=== PATIENT | female | born 2000 | race Caucasian/White ===

== ENCOUNTER → 2023-10-20 | Emergency (ER) | payer OTHER ==
[~2023-10-20] MED LIST: dexAMETHasone 10 MG/ML VIAL ONE
--- NOTE | 2023-10-20 15:09 | EDPHYS ---
Physician Documentation [facility] Name: Natacha Fortune Age: 23 yrs Sex: Female : 2000 Arrival Date: 10/20/2023 Time: 13:55 Bed 12 Private MD: ED Physician Catracho Lopez HPI: 10/20 14:53 This 23 yrs old Female presents to ER via Ambulatory with complaints of Allergic kb Reaction. 14:53 Patient is a 23-year-old female who presents for swelling to the lips that began on kb Wednesday. States she woke up on Wednesday morning with swelling to the upper lip, then ate some peanuts later in the morning and the swelling went down to her lower lip. States the swelling is now to both of the lips. Patient denies shortness of breath, rash, itching. States she does have a sore throat and headache today. Reports she did have fillers put in 3 months ago so she talked to her senior clinical study manager and was told that she has had patients in the past to have reactions to peanuts after having the fillers placed. Recommended antihistamines. Patient states she came in to see if she could get a shot of something to make it go away faster.. Historical: - Allergies: 14:17 No Known Allergies; bp - Home Meds: 14:17 None [Active]; bp - PMHx: 14:17 None; bp - Immunization history:: Adult Immunizations up to date. - Social history:: Smoking status: Patient denies any tobacco usage or history of. ROS: 14:34 Constitutional: Negative for fever, chills, and weight loss, kb 14:34 ENT: Positive for sore throat, lip swelling, 14:50 Neuro: Positive for headache, kb 14:50 All other systems are negative, Exam: 14:50 Constitutional: This is a well developed, well nourished patient who is awake, alert, kb and in no acute distress. Head/Face: Normocephalic, atraumatic. Cardiovascular: Regular rate Respiratory: Respirations even and unlabored. No increased work of breathing. Talking in full sentences Abdomen/GI: Soft, non-tender. No distention Skin: Warm, dry with normal turgor. Normal color. MS/ Extremity: Pulses equal, no cyanosis. Neurovascular intact. Full, normal range of motion. Neuro: Awake and alert, GCS 15, oriented to person, place, time, and situation. Moves all extremities. Normal gait. 14:50 ENT: Mouth: Lips: swelling, Posterior pharynx: Airway: normal, erythema, that is mild, Vital Signs: 14:15 BP 122 / 83; Pulse 108; Resp 18; Temp 98.7; Pulse Ox 100% ; Weight 61.23 kg; Height 5 bp ft. 3 in. ; 14:15 Body Mass Index 23.91 (61.23 kg, 160.02 cm) bp MDM: 14:02 Patient medically screened. kb 14:52 Differential diagnosis: anaphylaxis, angioedema, strep, flu. Data reviewed: vital kb signs, nurses notes. Counseling: I had a detailed discussion with the patient and/or guardian regarding the historical points, exam findings, and any diagnostic results supporting the discharge/admit diagnosis, lab results, the need for outpatient follow up, a family practitioner, to return to the emergency department if symptoms worsen or persist or if there are any questions or concerns that arise at home. 10/20 14:11 Order name: Flu; Complete Time: 15:08 kb 10/20 14:11 Order name: Strep kb 10/20 15:00 Order name: Throat Culture EDMS Administered Medications: 14:31 Drug: Dexamethasone IM 10 mg IM once Route: IM; Site: right deltoid; ld1 Disposition: 14:42 I was immediately available on-site in the Emergency Department for consultation in the ms3 care of the patient. Disposition Summary: 10/20/23 15:09 Discharge Ordered Notes: Location: Home kb Condition: Stable kb Diagnosis - Localized swelling, mass and lump, unspecified - lip swelling kb Followup: kb - With: Emergency Department - When: As needed - Reason: Worsening of condition Followup: kb - With: Private Physician - When: 2 - 3 days - Reason: Recheck today's complaints, Continuance of care, Re-evaluation by your physician Discharge Instructions: - Discharge Summary Sheet kb - Allergies, Adult, Cbna-jt-Upod kb Forms: - Medication Reconciliation Form kb - Thank You Letter kb - Antibiotic Education kb - Prescription Opioid Use kb - Patient Portal Instructions kb - Leadership Thank You Letter kb Signatures: Dispatcher [employer] EDMS Juliette Grove, Samuel Hernadez, RN RN bp Catracho Lopez DO DO ms3 Nichole Lopez RN RN ld1 Corrections: (The following items were deleted from the chart) 14:50 14:34 ENT: Positive for lip swelling, kb kb
--- NOTE | 2023-10-20 15:09 | ER ---
Nurse's Notes [facility] Name: Natacha Fortune Age: 23 yrs Sex: Female : 2000 Arrival Date: 10/20/2023 Time: 13:55 Bed 12 Private MD: Diagnosis: Localized swelling, mass and lump, unspecified-lip swelling Presentation: 10/20 14:15 Chief complaint: Patient states: LIP SWELLING AFTER EATING NUTS ON WEDNESDAY. Coronavirus bp screen: At this time, the client does not indicate any symptoms associated with coronavirus-19. Ebola Screen: No symptoms or risks identified at this time. Onset: The symptoms/episode began/occurred 3 day(s) ago. Anaphylaxis evaluation, no signs or symptoms of anaphylaxis were noted. Initial Sepsis Screen: Does the patient meet any 2 criteria? No. Patient's initial sepsis screen is negative. Does the patient have a suspected source of infection? No. Patient's initial sepsis screen is negative. Risk Assessment: Do you want to hurt yourself or someone else? Patient reports no desire to harm self or others. Onset of symptoms is unknown. 14:15 Method Of Arrival: Ambulatory bp 14:15 Acuity: RENITA 4 bp Triage Assessment: 14:17 General: Appears in no apparent distress. Behavior is cooperative, appropriate for age, bp anxious. Pain: Denies pain. Respiratory: Airway is patent. Historical: - Allergies: 14:17 No Known Allergies; bp - Home Meds: 14:17 None [Active]; bp - PMHx: 14:17 None; bp - Immunization history:: Adult Immunizations up to date. - Social history:: Smoking status: Patient denies any tobacco usage or history of. Screenin:38 [facility] ED Fall Risk Assessment (Adult) History of falling in the last 3 months, ld1 including since admission No falls in past 3 months (0 pts). Abuse screen: Denies threats or abuse. Denies injuries from another. Nutritional screening: No deficits noted. Tuberculosis screening: No symptoms or risk factors identified. Assessment: 14:38 Reassessment: See triage assessment. General: Appears in no apparent distress. ld1 comfortable, Behavior is calm, cooperative, appropriate for age. Neuro: Level of Consciousness is awake, alert, obeys commands, Oriented to person, place, time, situation. Respiratory: Airway is patent Respiratory effort is even, unlabored, Breath sounds are clear bilaterally. Derm: swelling to lips. Vital Signs: 14:15 BP 122 / 83; Pulse 108; Resp 18; Temp 98.7; Pulse Ox 100% ; Weight 61.23 kg; Height 5 bp ft. 3 in. ; 14:15 Body Mass Index 23.91 (61.23 kg, 160.02 cm) bp ED Course: 13:59 Patient arrived in ED. ra3 14:02 Juliet[facility] Grove [facility]C [facility] kb 14:02 Catracho Lopez DO is Attending Physician. kb 14:16 Triage completed. bp 14:17 Arm band placed on. bp 14:31 Nichole Lopez, RN is Primary Nurse. ld1 14:31 Strep Sent. ld1 14:31 Flu Sent. ld1 14:38 Patient has correct armband on for positive identification. Placed in gown. Bed in low ld1 position. Call light in reach. Side rails up X2. Pulse ox on. NIBP on. Door closed. Noise minimized. Warm blanket given. 15:12 No provider procedures requiring assistance completed. Patient did not have IV access ld1 during this emergency room visit. Administered Medications: 14:31 Drug: Dexamethasone IM 10 mg IM once Route: IM; Site: right deltoid; ld1 Medication: 14:38 VIS not applicable for this client. ld1 Outcome: 15:09 Discharge ordered by . kb 15:12 Discharged to home ambulatory, ld1 15:12 Condition: stable 15:12 Discharge instructions given to patient, Instructed on discharge instructions, follow up and referral plans. Demonstrated understanding of instructions, follow-up care, 15:12 Patient left the ED. ld1 Signatures: Juliette Grove FNP-C FNP-Ckb Peltier, Brian RN RN bp Nichole Lopez, PRISCILLA RN ld1 Maggie Gonzales ra3
[2023-10-20 16:09] VITALS: BP 122/83; TEMP 98.7; O2SAT 100
== END ==
LOC: ER 13:55
DX: R22.9 Localized swelling, mass and lump, unspecified (principal); R51.9 Headache, unspecified
CPT/HCPCS: 87070; 87081; 87804 ×2; J1100; 96372; 99284

== ENCOUNTER → 2023-12-24 | Emergency (ER) | payer OTHER, SELFPAY ==
[~2023-12-24] MED LIST changes: +METHYLPREDNISOLONE 125 MG INJ ONE; -dexAMETHasone 10 MG/ML VIAL ONE
--- OUTSIDE RECORDS SUMMARY | 2023-12-24 14:33 | XMS REPORT | Continuity of Care Document ---
Author Name Unknown Address [address] [place] [address] [facility] thconnect Address [address] [place] [address] Care Team Providers Care Medical Malpractice Paralegal Name Role Phone Saulo Kramer Attending Clinician Roberto Bales Admitting Clinician Unavailable Payers Payer Name Policy Type Policy Number Effective Date Expirati on Date Source Allergies, Adverse Reactions, Alerts Allergy Name Allergy Type Status Severity Reaction(s) Onset Date Inactive Date Treating Clinician Comments Source No Known Allergie s DA Active U 07-17 00:00: 00 [facility] No Known Allergie s DA Active U 07-17 00:00: 00 [facility] No Known Intolera nces DA Active U 2012-11 00:00: 00 [facility] No Known Intolera nces DA Active U 2012-11 00:00: 00 [facility] Encounters Start Date/Time End Date/Time Encounter Type Admission Type Attending Clinicians Care Facility Care Department Encounter ID Source 2022-10-30 10:41:58 2022-10-30 10:41:58 Outpatient [facility] [id number] 2021-07-17 14:40:00 2021-07-17 16:15:00 Inpatient EM Saulo Kramer [facility] [id number] [facility] Results Test Description Test Time Test Comments Results Result Co mments Source URINE HCG TRIAGE (ER ONLY)2021-07-18 10:02:00* Test Item Value Reference Range Interpretation Comme nts URINE HCG TRIAGE (ER ONLY) ( test code = HCGTRIAGE) NEGATIVE Negative Urine Test Result: NEGATIVEAre internal controls (presence of a control line & clear background) OK? YesLot # of HCG Test Kit: [id number] Date of Kit: 12/01/22Test Performed by: REBECCATest Perfomed on: 07/17/21CB W/AUTO [id number] 00:00:00* Test Item Value Reference Range Interpretation Comme nts WHITE BLOOD CELL (test code = WBC) 11.0 K/uL 3.5-11.0 N RED BLOOD CELL (test code = RBC) 4.52 M/uL 3.54-5.02 N HEMOGLOBIN (test code = HGB) 13.4 GM/DL 11.0-15.0 N HEMATOCRIT (test code = HCT) 38.0 % 37.0-47.0 N MEAN CELL VOLUME (test code = MCV) 84.1 fL 81.0-99.0 N MEAN CELL HGB (test code = MCH) 29.6 pg 27.0-31.0 N MEAN CELL HGB CONCETRATION ( test code = MCHC) 35.3 GM/DL 33.0-37.0 N RED CELL DISTRIBUTION WIDTH CV (test code = RDW) 13.4 % 11.5-14.5 N PLATELET COUNT (test code = PLT) 222 K/mm3 150-400 N MEAN PLATELET VOLUME (test c ode = MPV) 11.5 FL 8.8-13.1 N NEUTROPHIL % (test code = NT%) 39.6 % 34.0-64.0 N LYMPHOCYTE % (test code = LY%) 53.1 % 25.0-45.0 H MIXED % (test code = MX%) 7.3 % 3.0-15.0 N NEUTROPHIL # (test code = NT#) 4.4 K/uL 1.8-7.6 N LYMPHOCYTE # (test code = LY#) 5.8 K/uL 1.0-3.8 H MIXED # (test code = MX#) 0.8 k/mm3 0.1-0.8 N MONO [id number] 19:16:00* Test Item Value Reference Range Interpretation Comme nts MONO SCREEN (test code = MONO) POSITIVE NEGATIVE [place] [address]/17/21Nurse read back resut and tech confirmed it's correct? Y BASIC METABOLIC [id number] 15:13:00* Test Item Value Reference Range Interpretation Comme nts SODIUM (test code = NA/ABG) 139 MEQ/L 134-147 N POTASSIUM (test code = K/ABG) 4.3 MEQ/L 3.4-5.0 N CHLORIDE (test code = CL/ABG) 104 MEQ/L 100-108 N CREATININE ABG (test code = CREAABG) 0.8 mg/dL 0.6-1.0 N POC IONIZED CALCIUM (test co de = POCCA) 1.22 MMOL/L 1.12-1.32 N POC GLUCOSE (test code = POCGLU) 107 MG/DL - CT NECK [id number] 00:00:00 [facility] : 2000 Sex: F Name: LICHA GALLAGHER FSED : 2000 Age/S: 21 / F [address] [facility] Unit #: [id number] Loc:Geovani Andrews [address] Phys: Saulo Kramer MD Acct: [id number] Dis Date: Status: REG ER PHONE#: Exam Date: 07/17/2021 5640 FAX #: Reason: LEFT LATERAL NECK SWELLING EXAMS: CPT CODE: [id number] CT NECK W/CONTRAST 66823 PROCEDURE INFORMATION: Exam: CT Neck With Contrast Exam date and time: 07/17/2021 3:25 PM Age: 21 years old Clinical indication: Neck pain; Additional info: Left lateral neckswelling TECHNIQUE: Imaging protocol: Computed tomography images of the neck with contrast. Radiation optimization: All CT scans at this facility use at least one of these dose optimization techniques: automated exposure control; mA and/or kV adjustment per patient size (includes targeted exams where dose is matched to clinical indication); or iterative reconstruction. Contrast material: ISO 300;Contrast volume: 100 ml; Contrast route: INTRAVENOUS (IV); Other technique: CT RADIATION DOSE DLP: 280.26 MGY-CM COMPARISON: No relevant prior studies available. FINDINGS: Brain: No abnormal intracranial enhancement along the visualized segments. Nasopharynx: Mildly prominent tonsillar pillars andnasopharyngeal adenoidal tissue with no airway compromise. Oropharynx: No significant tonsillar enlargement. Hypopharynx: Unremarkable. Larynx: Normal epiglottis. Retropharyngeal space: Unremarkable. Submandibular/Parotid glands: Glands are normal in size. No focal lesions. Thyroid: Unremarkable thyroid gland. Lymph nodes: Bilateral submental, submandibular, anterior posterior triangle lymphadenopathy is noted with the dominant right and left submandibular lymph nodes measuring 15 and 17 mm in m aximum transverse dimension, respectively. Subcentimeter bilateral supraclavicular lymph nodes are seen, not enlarged by size criteria and without suspicious features.Low volume residual thymic tissue is seen in the anterior mediastinum, considered within normal limits. Few bilateral subcentimeter s uboccipital/nuchal lymph nodes are noted measuring up to 6 mm in short axis. Trachea: Visualized trachea is unremarkable. Lungs: Clear lung apices. Bones/joints: No acute fracture. Soft tissues: Widely patent airway without focal abnormality. No prevertebral soft tissue edema or fluid collection. PAGE 1 Signed Report (CONTINUED) Name: LICHA GALLAGHER FSED : 2000 Age/S: 21 / F [address] [facility] Unit #: [id number] Loc: Geovani [facility] [address] Phys: Saulo Kramer MD Acct: [id number] Dis Date: Status: REG ER PHONE #: Exam Date: 07/17/2021 1532 FAX #: Reason: LEFT LATERAL NECKSWELLING EXAMS: CPT CODE: [id number] CT NECK W/CONTRAST 10168 (Continued) Other findings: Visualized skeleton is unremarkable. IMPRESSION: 1. Bilateral submental, submandibular, anterior and posterior cervical lymphadenopathy as described. Acute lymphadenitis is the main consideration given patient's age and reported pain. Recommend follow-up with ultrasound or CT in 6-8 weeks to assess for resolution and to exclude underlying lymphoproliferative disorder. Does this patient have history of mononucleosis? 2. Mild nasopharyngeal and bilateral tonsillar pillar adenoidal hypertrophy with no airway compromise. 3. No organized fluid collection. at 1555 Reported and signed by: Rishi Chan M.D. CC: Saulo Kramer MD Technologist:RT Crow(R)(CT) CTDI: DLP: Trnscb Date/Time: 07/17/2021 (1555)t.[email or web address] Orig Print D/T: S: 07/17/2021 (5093) PAGE 2 Signed Report Notes Date/Time Note Provider Source 2021-07-17 14:55:00 [id number]:55:00 [facility] ([facility])EMERGENCY PROVIDER REPORTREPORT#:[id number] REPORT STATUS: SignedDATE:07/17/21 TIME: 1755 PATIENT: LICHA GALLAGHER UNIT #: [id number]#: [id number] ROOM/BED:AGE: 21 SEX: F PCP PHYS: Roberto Shah MDSERVICE AUTHOR: Saulo Kramer MD * ALL edits or amendments must be made on the electronic/computer document * See AddendumHPI-Neck Pain GeneralInitial Greet Date/Time 07/17/21 1440 PresentationChief Complaint Left neck swelling and pain Free Text HPI NotesFree Text HPI [id number] healthy, vaccinated female presents with left neck swelling and pain. Patient reports 1 week of left neck discomfort, and noticing yesterday that she had some swelling to her left neck. Denies fever, recent illness, sorethroat, cough, trauma, skin changes. Mother denies family history of hematologic malignancy.Patient denies substance use. Review of Systems Focused Review of SystemsConstitutionalDenies: Chills, Fatigue, Fever, Malaise, Recent wt loss. EyesDenies: Blurred bilat. Ears/Nose/ThroatDenies: Earache bilat, Sore throat. RespiratoryDenies: Cough, non-productive, Shortness of breath. CardiovascularDenies: Chest pain. GIDenies: Abdominal pain, Vomiting. MusculoskeletalReports: Neck pain. SkinReports: Swelling. NeurologicDenies: Focal weakness, Generalized weakness. Past Medical History - AdultStated Complaint L SIDED NECK SWELLINGAllergiesCoded Allergies:No Known Allergies (07/17/21) Home MedicationsReported MedicationsNo Known Home Medications Discontinued Reported MedicationsAMOXICILLIN/CLAV K (AUGMENTIN 600 MG/5 ML) Pt reports no significant: Past medical history, Past surgical history Physical Exam Vital SignsVital SignsFirst Documented: Result Date Time Pulse Ox 97 07/17 1453 B/P 120/75 07/17 1453 B/P Mean 90 07/17 1453 Temp 36.2 07/17 1453 Pulse 105 07/17 1453 Resp 16 07/17 1453 Last Documented: Result Date Time Pulse Ox 98 07/17 1614 B/P 122/89 07/17 1614 B/P Mean 100 07/17 1614 Temp 36.7 07/17 1614 Pulse 98 07/17 1614 Resp 16 07/17 1614 Review of Vital Signs Reviewed Focused PEGeneral/Const General/Const Awake, Alert, No acute distress, Well appearing, Well developed, Well hydrated, Not toxic appearingMS Head Head AtraumaticEyes Eyes PERRL, EOMIEars/Nose/Throat Ears/Nose/Throat Atraumatic, Airway patent, Mucous membranes moist, Pharynx NL, No trismusMS Neck Neck Full range of motion Text/Dict NotesSwelling to left neck w/o overlying skin changes Soft Tissue Neck Lymphadenitis L. Resp/Chest Respiratory/Chest Breath sounds NL, Breath sounds = bilat, No respiratory distressCardiovascular Cardiovascular Heart rate NL, Regular rhythm, Heart sounds NLSkin Skin Color NLNeurologic Neurologic Oriented X3, Speech NL, No motor deficits, Cerebellar NL, Memory NL, Gait NL ImagesNeck Zones of Neck[Embedded Image Not Available] 1) Swelling and tenderness. No obviously palpable lymph nodes. Interpretation Diagnostics Lab Results InterpretationResultsLaboratory Tests: 07/17 1508 Blood Gas Sodium (134 - 147 MEQ/L) 139 Potassium (3.4 - 5.0 MEQ/L) 4.3 Chloride (100 - 108 MEQ/L) 104 Ionized Calcium (1.12 - 1.32 MMOL/L) 1.22 Chemistry POC Creatinine (0.6 - 1.0 mg/dL) 0.8 POC Glucose (mg/dL) (MG/DL) 107 Recent Impressions:CAT SCAN - CT NECK W/CONTRAST 07/17 1525 Report Impression - Status: SIGNED Entered: 07/17/2021 0026 IMPRESSION: 1. Bilateral submental, submandibular, anterior and posterior cervical lymphadenopathy as described. Acute lymphadenitis is the main consideration given patient's age and reported pain. Recommend follow-up with ultrasound or CT in 6-8 weeks to assess for resolution and to exclude underlying lymphoproliferative disorder. Does this patient have history of mononucleosis? 2. Mild nasopharyngeal and bilateral tonsillar pillar adenoidal hypertrophy with no airway compromise. 3. No organized fluid collection.Impression By: TingERR2 - Rishi Chan M.D. Re-Evaluation MDM Free Text MDM NotesFree Text MDM Nzjol96-zono-lav healthy, vaccinated female presents with left neck swelling and pain. Patient well apearing. DDx: lymphadenitis, hematologic malignancy, mono.Low suspicion for mumps in setting of vaccinated patient. Re-Evaluation/ProgressRe-Evaluation/Progress Text/Dict NoteCT w/ enlarged lymph nodes c/w lymphadneitis. Will test for mono. Blood work WNL.Discharge with return precautions and instructions to have repeat neck imaging in 6-8 weeks. Patient Discharge Departure Vital Signs/ConditionVital SignsFirst Documented: Result Date Time Pulse Ox 97 07/17 1453 B/P 120/75 07/17 1453 B/P Mean 90 07/17 1453 Temp 36.2 07/17 1453 Pulse 105 07/17 1453 Resp 16 07/17 1453 Last Documented: Result Date Time Pulse Ox 98 07/17 1614 B/P 122/89 07/17 1614 B/P Mean 100 07/17 1614 Temp 36.7 07/17 1614 Pulse 98 07/17 1614 Resp 16 07/17 1614 All vital signs available at the time of this entry have been reviewed. Clinical ImpressionClinical ImpressionPrimary Impression: Lymphadenopathy of head and neck Disposition DecisionDischarge )( Discharged to Home Yes )( Time 1603 )( Date 07/17/21 Discharge/Care PlanCounseled Regarding Diagnosis, Lab results, Imaging studies, Need for follow-up,When to return to ED(Auto) PrescriptionsCurrent Visit ScriptsNo Known Home Medications Patient Instructions ED MononucleosisAdditional InstructionsYou will be called will your mono test result. While waiting for result, avoid sharing drinks and avoid contact sports.Referrals PRIMARY CARE: Call for appointmentYou need to arrange for follow-up ultrasound or CT in 6-8 weeks to assess for resolution of swollen lymph nodes and to exclude underlying lymphoproliferative disorder. Discharge NoteI have spoken with the patient and/or caregivers. I have explained the patient'scondition, diagnoses and treatment plan based on the information available to meat this time. I have answered the patient's and/or caregiver's questions and addressed any concerns. The patient and/or caregivers have as good an understanding of the patient's diagnosis, condition and treatment plan as can beexpected at this point. The vital signs have been stable. The patient's condition is stable and appropriate for discharge from the emergency department. The patient will pursue further outpatient evaluation with the primary care physician or other designated or consulting physician as outlined in the discharge instructions. The patient and/or caregivers are agreeable to this planof care and follow-up instructions have been explained in detail. The patient and/or caregivers have received these instructions in written format and have expressed an understanding of the discharge instructions. The patient and/or caregivers are aware that any significant change in condition or worsening of symptoms should prompt an immediate return to this or the closest emergency department or a call to 911. at 1638 Addendum 1: 07/21/21 0723 by Saulo Kramer MD Patient AddendumAddendumMono resulted as positive. Called patient and left voicemail, provided results and mono precautions. [place]. [place] [address]RPT #:[id number] OF REPORTEDEmerashley county medical center department [id number]:55:00G.[id number] ilable for patient [id number]:38:59 HCACL
[2023-12-24 15:34] LABS: Specific Gravity 1.027 (1.005-1.030)
[2023-12-24 15:48] LABS: Specific Gravity 1.027 (1.005-1.030); Urine Bacteria None Seen /HPF (<20); Urine Bilirubin NEGATIVE (Negative); Urine Blood Negative (Negative); Urine Clarity Extremely Turbid (Clear); Urine Color Yellow (Yellow); Urine Glucose NEGATIVE (Negative); Urine Mucus 3+ /HPF (None Seen); Urine Protein TRACE (Negative); Urine RBC <5 /HPF (None Seen); Urine Urobilinogen 1+ (Normal); Urine WBC Clump Rare /HPF (None Seen)
--- NOTE | 2023-12-24 16:07 | ER ---
Nurse's Notes [facility] Name: Natacha Das Age: 23 yrs Sex: Female : 2000 Arrival Date: 12/24/2023 Time: 14:31 Bed 9 Private MD: Diagnosis: Localized swelling, mass and lump, unspecified-upper lip Presentation: 12/24 14:42 Chief complaint: Patient states: Upper lip swelling started today. Cough/congestion ll1 getting better. Coronavirus screen: Client denies travel out of the [place] in the last 14 days. At this time, the client does not indicate any symptoms associated with coronavirus-19. Ebola Screen: Patient denies travel to an Ebola-affected area in the 21 days before illness onset. Onset: The symptoms/episode began/occurred today. Anaphylaxis evaluation, no signs or symptoms of anaphylaxis were noted. Initial Sepsis Screen: Does the patient meet any 2 criteria? No. Patient's initial sepsis screen is negative. Does the patient have a suspected source of infection? No. Patient's initial sepsis screen is negative. Risk Assessment: Do you want to hurt yourself or someone else? Patient reports no desire to harm self or others. Onset of symptoms was December 24, 2023. 14:42 Method Of Arrival: Ambulatory ll1 14:42 Acuity: RENITA 4 ll1 Triage Assessment: 14:42 General: Appears in no apparent distress. Behavior is calm, cooperative, appropriate ll1 for age. Pain: Denies pain. Derm: Reports swelling to upper lip. 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 - Social history:: Smoking status: Patient denies any tobacco usage or history of. Screenin:27 [facility] ED Fall Risk Assessment (Adult) History of falling in the last 3 months, tl4 including since admission No falls in past 3 months (0 pts) Confusion or Disorientation No (0 pts) Intoxicated or Sedated No (0 pts) Impaired Gait No (0 pts) Mobility Assist Device Used No (0 pt) Altered Elimination No (0 pt) Score/Fall Risk Level 0 - 2 = Low Risk Oriented to surroundings, Maintained a safe environment, Educated pt \T\ family on fall prevention, incl call for assistance when getting out of bed, Assessed \T\ reinforced patient's understanding of fall precautions, Provided non-skid footwear, Hourly rounding (assess needs \T\ fall precautionary measures) done, Used ambulatory aids as needed (educated on \T\ assisted with), Used gait belt as appropriate. Abuse screen: Denies threats or abuse. Denies injuries from another. Nutritional screening: No deficits noted. Tuberculosis screening: No symptoms or risk factors identified. Assessment: 15:26 General: Appears in no apparent distress. Behavior is calm, cooperative. Pain: Denies tl4 pain. Neuro: No deficits noted. Cardiovascular: No deficits noted. Respiratory: No deficits noted. Airway is patent Trachea midline Respiratory effort is even, unlabored, Respiratory pattern is regular, Breath sounds are clear bilaterally. Denies cough, shortness of breath labored breathing. GI: No deficits noted. No signs and/or symptoms were reported involving the gastrointestinal system. : No deficits noted. No signs and/or symptoms were reported regarding the genitourinary system. EENT: Reports swelling of upper lip. Derm: No deficits noted. No signs and/or symptoms reported regarding the dermatologic system. Vital Signs: 14:42 BP 131 / 91; Pulse 100; Resp 17; Temp 99; Pulse Ox 100% ; Weight 61.23 kg; Height 5 ft. ll1 3 in. ; Pain 0/10; 15:29 BP 125 / 88; Pulse 90; Resp 16; Pulse Ox 99% on R/A; Pain 0/10; tl4 14:42 Body Mass Index 23.91 (61.23 kg, 160.02 cm) ll1 14:42 Pain Scale: Adult ll1 15:29 Pain Scale: Adult tl4 Vitals: 15:29 Cardiac Rhythm Assessment Regular. tl4 Nilesh Coma Score: 15:29 Eye Response: spontaneous(4). Motor Response: obeys commands(6). Verbal Response: tl4 oriented(5). Total: 15. ED Course: 14:31 Patient arrived in ED. rg4 14:34 Nikhil Santiago PA is PHCP. cp 14:34 Noel Mcgarry MD is Attending Physician. cp 14:43 Triage completed. ll1 14:43 Arm band placed on Patient placed in an exam room, on a stretcher. ll1 15:08 Serg Houston, RN is Primary Nurse. tl4 15:26 Test, Urine Sent. tl4 15:26 Urinalysis W/Microscopic Sent. tl4 15:28 Patient has correct armband on for positive identification. Call light in reach. tl4 Provided Education on: ed process. Door closed. Lights dimmed. Moved to private room. PO fluids given. 15:29 No provider procedures requiring assistance completed. Patient did not have IV access tl4 during this emergency room visit. Administered Medications: 15:56 Drug: MethylPREDNISolone Sodium Succinate IM 125 mg IM once; if test negative tl4 Route: IM; Site: left ventrogluteal; 16:09 Follow up: Response: No adverse reaction as6 Medication: 15:27 VIS not applicable for this client. tl4 Outcome: 16:06 Discharge ordered by . barbara 16:07 Condition: stable as6 16:11 Discharged to home ambulatory, as6 16:11 Discharge instructions given to patient, Instructed on discharge instructions, follow up and referral plans. medication usage, Demonstrated understanding of instructions, follow-up care, medications, Prescriptions given X 1, 16:12 Patient left the ED. as6 Signatures: Nikhil Santiago PA PA cp Garcia, Rubi rg4 Micaela Manzanares RN RN ll1 Nikos Keenan, PRISCILLA RN as6 Serg Houston, RN RN tl4
--- NOTE | 2023-12-24 16:07 | EDPHYS ---
Physician Documentation [facility] Name: Natacha Dsa Age: 23 yrs Sex: Female : 2000 Arrival Date: 12/24/2023 Time: 14:31 Bed 9 Private MD: ED Physician Noel Mcgarry HPI: 12/24 15:00 This 23 yrs old Female presents to ER via Ambulatory with complaints of Allergic cp Reaction. 15:00 The patient presents with swelling of upper lip. Onset: The symptoms/episode cp began/occurred this morning. Associated signs and symptoms: Pertinent negatives: fever, shortness of breath, difficulty swallowing. Possible causes: allergic reaction. At home the patient or guardian has treated the symptoms with Benadryl. Severity of symptoms: in the emergency department the symptoms are unchanged despite home interventions. Patient reports having lip filler procedure done in the past and intermittently will have swelling of upper lip when she gets sick. Took 1 tablet of OTC Benadryl earlier today with no relief. 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 - Social history:: Smoking status: Patient denies any tobacco usage or history of. ROS: 15:05 Skin: Positive for cp Vital Signs: 14:42 BP 131 / 91; Pulse 100; Resp 17; Temp 99; Pulse Ox 100% ; Weight 61.23 kg; Height 5 ft. ll1 3 in. ; Pain 0/10; 15:29 BP 125 / 88; Pulse 90; Resp 16; Pulse Ox 99% on R/A; Pain 0/10; tl4 14:42 Body Mass Index 23.91 (61.23 kg, 160.02 cm) ll1 14:42 Pain Scale: Adult ll1 15:29 Pain Scale: Adult tl4 Nilesh Coma Score: 15:29 Eye Response: spontaneous(4). Motor Response: obeys commands(6). Verbal Response: tl4 oriented(5). Total: 15. MDM: 14:37 Patient medically screened. cp 12/24 14:52 Order name: Urinalysis W/Microscopic; Complete Time: 15:58 cp 02/23 15:58 Interpretation: Normal except: [facility] Extremely Turbid; UPROT TRACE; UUROB 1+; UESTR 500; cp UWBC 10-20; MUCUS 3+. 12/24 14:52 Order name: Test, Urine; Complete Time: 15:58 cp 12/24 15:59 Order name: Urine Culture EDMS Administered Medications: 15:56 Drug: MethylPREDNISolone Sodium Succinate IM 125 mg IM once; if test negative tl4 Route: IM; Site: left ventrogluteal; 16:09 Follow up: Response: No adverse reaction as6 Disposition Summary: 12/24/23 16:06 Discharge Ordered Notes: Location: Home cp Problem: new cp Symptoms: have improved cp Condition: Stable cp Diagnosis - Localized swelling, mass and lump, unspecified - upper lip cp Followup: cp - With: Private Physician - When: 1 - 2 days - Reason: Worsening of condition Discharge Instructions: - Allergy Skin Testing cp - Form - Return To Work cp - Allergy Blood Testing cp - Discharge Summary Sheet ll1 Forms: - Medication Reconciliation Form cp - Thank You Letter cp - Antibiotic Education cp - Prescription Opioid Use cp - Patient Portal Instructions cp - Leadership Thank You Letter cp - Work release form ll1 Prescriptions: - Prednisone 20 mg Oral Tablet - take 2 tablets ORAL route once daily for 5 days; 10 tablet; Refills: 0, Product cp Selection Permitted Signatures: Dispatcher [employer] EDNikhil Najera PA PA cp Lewis, Lynsay RN RN ll1 Serg Houston RN RN tl4 Nikos Keenan RN as6
[2023-12-24 16:49] VITALS: BP 125/88; TEMP 99; O2SAT 99
== END ==
LOC: ER 14:31
DX: R22.9 Localized swelling, mass and lump, unspecified (principal)
CPT/HCPCS: 81001; 81025; 87086; 87088; J2930

== ENCOUNTER 2024-08-26 10:19 | Emergency (ER) | payer OTHER, SELFPAY ==
--- OUTSIDE RECORDS SUMMARY | 2024-08-26 10:22 | XMS REPORT | Continuity of Care Document ---
Author Name Unknown Address [address] [facility] [address] [place] [address] [facility] thconnect Address [address] [facility] [address] [place] [address] Care Team Providers Care Collection Teller Name Role Phone LUZ TORRES Attending Clinician Unava ilable JAIRO MESSER Attending Clinician Unavailable LAB90 Attending Clinician Unavailable CECILIO WALKER Attending Clinician Unavailable JYOTHI GALVAN Attending Clinician Unava ilable BRITNEY CONKLIN Attending Clinician Unavailable LIZ KELLY Attending Clinician Unavailable MICHAEL AQUINO Attending Clinician Unavailab Saulo Cartagena Attending Clinician Marguerite vailaRoberto Loving Admitting Clinician Unavailable Payers Payer Name Policy Type Policy Number Effective Date Expirati on Date Source [employer] MP [employer] [employer] 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 ON 9 [id number] 2024 00:00:00 Allergies, Adverse Reactions, Alerts Allergy Name Allergy Type Status Severity Reaction(s) Onset Date Inactive Date Treating Clinician Comments Source No Known Allergie s DA Active U 16 00:00: 00 [facility] No Known Allergie s DA Active U 07-17 00:00: 00 [facility] No Known Intolera nces DA Active U 2012-11 00:00: 00 [facility] No Known Intolera nces DA Active U 2012-11 00:00: 00 [facility] Social History Social Habit Start Date Stop Date Quantity Comments Source ASSERTION Not Tori Gunn - External Sexual orientation K tri Velia - External Alcoholic beverage intake 2024-08-23 00:00:00 2024-08-23 00:00:00 .14 /d Tori Gunn - External History of Social function 2024-08-23 00:00:00 2024-08-23 00:00:00 Tori Gunn - External Alcohol Comment 2024-03-23 00:00:00 2024-03-23 00:00:00 socially Tori Gunn - External Tobacco use and exposure 2024-03-23 00:00:00 2024-03-23 00:00:00 Smokeless tobacco non-user Tori Gunn - External Sex 2024-02-02 15:33:48 2024-02-02 15:33:48 Female (finding) Tori Gunn - External Sex assigned at 2000 00:00:00 2000 00:00:00 Tori Gunn - External Smoking Status Start Date Stop Date Source Never smoked tobacco Tori Gunn - External Medications Ordered Medication Name Filled Medication Name Start Date Stop Date Current Medication? Ordering Clinician Indication Dosage Frequency Signature (SIG) Comments Components Source Nitrofurant oin Monohyd Macro (Macrobid) 100 MG oral Capsule 2023-11 00:00: 00 Yes [id number] 100mg Q.5D Take 1 capsule (100 mg total) by mouth 2 times daily. Tori leon Minocycline HCl 100 MG oral Capsule 07-28 00:00: 00 Yes [id number] Take 1 pill PO BID for two months. Tori leon Tretinoin 0.025 % apply externally Cream 07-28 00:00: 00 Yes [id number] Apply pea sized amount to face three nights weekly. Increase as tolerated to nightly use.. Tori leon Sulfacetami de Sodium, Acne, 10 % apply externally Lotion 07-28 00:00: 00 Yes [id number] Apply to affected areas once daily in AM.. Tori leon Fluconazole 150 MG oral Tablet 06-20 00:00: 00 Yes [id number] Take 1 pill PO once weekly. Tori leon CLINDAMYCIN PHOSPHATE,T OPICAL, 1 % apply externally Lotion 06-20 00:00: 00 07-27 00:00 :00 No [id number] Apply to affected areas twice daily for 4 weeks.. Tori leon Hydrocortis one 2.5 % apply externally Ointment 06-13 00:00: 00 Yes [id number] Apply to affected areas twice daily for up to two weeks. Then use as needed.. Tori leon Doxycycline Hyclate 100 MG oral Tablet 06-13 00:00: 00 Yes [id number] 100mg Q.5D Take 1 tablet (100 mg total) by mouth 2 times daily. Tori leon Ondansetron (ZOFRAN) 4 MG oral TABLET DISPERSIBLE 06-13 00:00: 00 Yes [id number] 4mg Q.[id number] 3D Take 1 tablet (4 mg total) by mouth every 8 hours as needed for nausea. Tori leon Azelaic Acid 15 % apply externally Gel 06-07 00:00: 00 Yes [id number] Apply once daily for one week, then increase to twice daily.. Tori leon Doxycycline Hyclate 100 MG oral Tablet - 00:00: 00 06-07 00:00 :00 No [id number] 100mg Q.5D Take 1 tablet (100 mg total) by mouth 2 times daily. Tori leon Vital Signs Vital Name Observation Time Observation Value Comments S ource Systolic blood pressure 2024-07-27 16:37:00 110 mm[Hg] Tori Walker ld - External Diastolic blood pressure 2024-07-27 16:37:00 73 mm[Hg] Tori Seybo ld - External Heart rate 2024-07-27 16:37:00 114 /min Kelse y Seybold - External Body temperature 2024-07-27 16:37:00 36.5 Jazmine Tori Seybold - External Respiratory rate 2024-07-27 16:37:00 18 /min Tori Seybold - External Body height 2024-07-27 16:37:00 160 cm Kay ey Seybold - External Body weight 2024-07-27 16:37:00 62.596 kg Kay ey Seybold - External BMI 2024-07-27 16:37:00 24.45 kg/m2 Kay ey Seybold - External Oxygen saturation in Arterial blood by Pulse oximetry 2024-07-27 16:37:00 97 /min Tori Thomasybo ld - External Systolic blood pressure 2024-06-08 18:14:00 116 mm[Hg] Tori Seybo ld - External Diastolic blood pressure 2024-06-08 18:14:00 78 mm[Hg] Tori Seybo ld - External Heart rate 2024-06-08 18:14:00 90 /min Bhargavse y Seybold - External Body temperature 2024-06-08 18:14:00 36.11 Jazmine Tori Seybold - External Respiratory rate 2024-06-08 18:14:00 15 /min Otri Seybold - External Body height 2024-06-08 18:14:00 160 cm Kay ey Seybold - External Body weight 2024-06-08 18:14:00 61.689 kg Kay ey Seybold - External BMI 2024-06-08 18:14:00 24.09 kg/m2 Kay ey Seybold - External Systolic blood pressure 2024-03-23 17:47:00 112 mm[Hg] Tori Seybo ld - External Diastolic blood pressure 2024-03-23 17:47:00 70 mm[Hg] Tori Seybo ld - External Heart rate 2024-03-23 17:47:00 86 /min Kelse y Seybold - External Body temperature 2024-03-23 17:47:00 36.61 Jazmine Tori Seybold - External Respiratory rate 2024-03-23 17:47:00 15 /min Tori Gunn - External Body height 2024-03-23 17:47:00 160 cm Kay Gunn - External Body weight 2024-03-23 17:47:00 61.689 kg Kay Foleyold - External BMI 2024-03-23 17:47:00 24.09 kg/m2 Kay Foleyold - External Encounters Start Date/Time End Date/Time Encounter Type Admission Type Attending [facility] Care Department Encounter ID Source 2024-10-27 14:00:00 2024-10-27 14:00:00 Outpatient LUZ TORRES TORI [facility] [id number] Tori Thomasarnel 2024-08-23 19:15:00 2024-08-23 19:15:00 Outpatient JAIRO MESSER TORI [facility] [id number] Tor[facility] 2024-08-22 12:20:00 2024-08-22 12:20:00 Outpatient LAB90 TORI PALAFOX [id number] Tori [facility] 2024-08-21 18:45:00 2024-08-21 18:45:00 Outpatient CECILIO WALKER TORI [facility] [id number] Tori [facility] 2024-07-28 16:30:00 2024-07-28 16:30:00 Outpatient LUZ TORRES [facility] [id number] [facility] 2024-07-27 13:05:00 2024-07-27 13:05:00 Outpatient LAB90 TORI PALAFOX [id number] Tori [facility] 2024-07-27 11:30:00 2024-07-27 11:30:00 Outpatient JYOTHI GALVAN [id number] [facility] 2024-07-26 00:00:00 2024-07-26 00:00:00 Outpatient BRITNEY CONKLIN [id number] [facility] 2024-07-22 10:08:08 2024-07-22 10:08:08 Outpatient SFA SFA [id number] [place] Fred[place] Lewis 2024-07-20 09:49:07 2024-07-20 09:49:07 Outpatient SFA SFA [id number] [place] Saucedo 2024-06-13 00:00:00 2024-06-13 00:00:00 Outpatient LIZ KELLYLAZARA PALAFOX [id number] Tori Seybarnel 2024-06-12 00:00:00 2024-06-12 00:00:00 Outpatient LUZ TORRES TORI [facility] [id number] Tori Seybold 2024-06-12 00:00:00 2024-06-12 00:00:00 Outpatient LUZ TORRES TORI [id number] Tori Seybold 2024-06-08 14:15:00 2024-06-08 14:15:00 Outpatient LAB90 [facility]I PALAFOX [id number] [facility] 2024-06-08 13:30:00 2024-06-08 13:30:00 Outpatient LIZ KELLY TORI [facility] [id number] Tori Seybold 2024-06-07 09:45:00 2024-06-07 09:45:00 Outpatient LUZ TORRES TORI [id number] Tori Seybold 2024-04-25 10:30:00 2024-04-25 10:30:00 Outpatient LIZ KELLY TORI PALA[facility] [id number] Tori Seybold 2024-03-28 00:00:00 2024-03-28 00:00:00 Outpatient LIZ KELLY TORI PALAFOX [id number] Tori Seybold 2024-03-23 13:45:00 2024-03-23 13:45:00 Outpatient LAB90 TORI PALAFOX [id number] Tori Seybold 2024-03-23 13:00:00 2024-03-23 13:00:00 Outpatient LIZ EKLLY TORI PALA[facility]X [id number] Tori Seybold 2024-03-13 08:15:00 2024-03-13 08:15:00 Outpatient KENIA MICHAEL TORI PALA[facility]X [id number] Tori Seybold 2022-10-30 10:41:58 2022-10-30 10:41:58 Outpatient SFA SFA [id number] [place] Saucedo 2021-07-17 14:40:00 2021-07-17 16:15:00 Inpatient EM Saulo Kramer [facility] [id number] [facility] Results Test Description Test Time Test Comments Results Result Co mments Source URINE HCG TRIAGE (ER ONLY)2021-07-18 10:02:00* Test Item Value Reference Range Interpretation Comme nts URINE HCG TRIAGE (ER ONLY) ( test code = HCGTRIAGE) NEGATIVE Negative Urine Test Result: NEGATIVEAre internal controls (presence of a control line & clear background) OK? YesLot # of HCG Test Kit: [id number] Date of Kit: 12/01/22Test Performed by: REBECCATest Perfomed on: 07/17/21CB W/AUTO [id number] 00:00:00* Test Item Value Reference Range Interpretation [...] = MX#) 0.8 k/mm3 0.1-0.8 N MONO [id number] 19:16:00* Test Item Value Reference Range Interpretation Comme nts MONO SCREEN (test code = MONO) POSITIVE NEGATIVE [place] [address]/17/21Nurse read back resut and tech confirmed it's correct? Y BASIC METABOLIC [id number] 15:13:00* Test Item Value Reference Range Interpretation [...] = POCGLU) 107 MG/DL - CT NECK [id number] 00:00:00 [facility] : 2000 Sex: F Name: LICHA GALLAGHER FSED : 2000 Age/S: 21 / F [address] [facility] Unit #: [id number] Loc: Geovani Andrews [address] Phys: Saulo Kramer MD Acct: [id number] Dis Date: Status: REG ER PHONE#: Exam Date: 07/17/2021 9527 FAX #: Reason: LEFT LATERAL NECK SWELLING EXAMS: CPT CODE: [id number] CT NECK W/CONTRAST 51393 PROCEDURE INFORMATION: Exam: CT Neck With Contrast Exam date and time: 07/17/2021 3:25 PM Age: 21 years old Clinical indication: Neck pain; Additional info: Left lateral neck swelling TECHNIQUE: Imaging protocol: Computed tomography images of the neck with contrast. Radiationoptimization: All CT scans at this facility use at least one of these dose optimization techniques: automated exposure control; mA and/or kV adjustment per patient size (includes targeted exams wheredose is matched to clinical indication); or iterative reconstruction. Contrast material: ISO 300; Contrast volume: 100 ml; Contrast route: INTRAVENOUS (IV); Other technique: CT RADIATION DOSE DLP: 280.26 MGY-CM COMPARISON: No relevant prior studies available. FINDINGS: Brain: No abnormal intracranial enhancement along the visualized segments. Nasopharynx: Mildly prominent tonsillar pillars and nasopharyngeal adenoidal tissue with no airway compromise. Oropharynx: No significant tonsillar enlargement. Hypopharynx: Unremarkable. Larynx: Normal epiglottis. Retropharyngeal space: Unremarkable. Submandibular/Parotid glands: Glands are normal in size. No focal lesions. Thyroid: Unremarkable thyroid gland. Lymph nodes: Bilateral submental, submandibular, anterior posterior triangle lymphadenopathy is noted with the dominant right and left submandibular lymph nodes measuring 15 and 17 mm in maxi mum transverse dimension, respectively. Subcentimeter bilateral supraclavicular lymph nodes are seen, not enlarged by size criteria and without suspicious features.Low volume residual thymic tissue is seen in the anterior mediastinum, considered within normal limits. Few bilateral subcentimeter suboccipital/nuchal lymph nodes are noted measuring up to 6 mm in short axis. Trachea: Visualized trachea is unremarkable. Lungs: Clear lung apices. Bones/joints: No acute fracture. Soft tissues: Widely patent airway without focal abnormality. No prevertebral soft tissue edema or fluid collection. PAGE 1 Signed Report (CONTINUED) Name: LICHA GALLAGHER FSED : 2000 Age/S: 21 / F [address] [facility] Unit #: [id number] Loc: Geovani Andrews [address] Phys: Saulo Kramer MD Acct: [id number] Dis Date: Status: REG ER PHONE #: Exam Date: 07/17/2021 1532 FAX #: Reason: LEFT LATERAL NECK SWELLING EXAMS: CPT CODE: [id number] CT NECK W/CONTRAST 04869 (Continued) Other findings: Visualized skeleton is unremarkable. [...] Technologist:RT Crow(R)(CT) CTDI: DLP: Trnscb Date/Time: 07/17/2021 (1555) [email or web address] Orig Print D/T: S: 07/17/2021 (8686) PAGE 2 Signed Report Notes Date/Time Note Provider Source 2024-07-28 16:30:03 Chief Complaint Patient presents with Acne [facility] 2024-07-27 11:46:33 Chief Complaint Patient presents with Abdominal Pain Off and on Abdominal pain lower left side for about 2 weeks Has IUD. 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 No other issues to discuss Gia Martinez MA [facility] 2024-06-07 09:32:57 Chief Complaint Patient presents with Skin Lesion Jessica Staffordughman [facility] 2024-03-23 12:51:57 Chief Complaint Patient presents with Establish Care Previously seen a PCP at [facility] in [place]. Last annual over a year ago. Skin Problem Skin tag on left ear. Gia Martinez [facility] 2021-07-17 14:55:00 [facility] ([facility] EMERGENCY PROVIDER REPORT REPORT#:[id number] REPORT STATUS: Signed DATE:07/17/21 TIME: 1454 PATIENT: LICHA GALLAGHER UNIT #: [id number] ROOM/BED: AGE: 21 SEX: F PCP PHYS: Roberto Shah MD SERVICE AUTHOR: Saulo Kramer MD * ALL edits or amendments must be made on the electronic/computer document * See Addendum HPI-Neck Pain General Initial Greet Date/Time 07/17/21 1440 Presentation Chief Complaint Left neck swelling and pain Free Text HPI Notes Free Text HPI Notes 21-year-old healthy, vaccinated female presents with left neck swelling and pain. Patient reports 1 week of left neck discomfort, and noticing yesterday that she had some swelling to her left neck. Denies fever, recent illness, sore throat, cough, trauma, skin changes. Mother denies family history of hematologic malignancy. Patient denies substance use. Review of Systems Focused Review of Systems Constitutional Denies: Chills, Fatigue, Fever, Malaise, Recent wt loss. Eyes Denies: Blurred bilat. Ears/Nose/Throat Denies: Earache bilat, Sore throat. Respiratory Denies: Cough, non-productive, Shortness of breath. Cardiovascular Denies: Chest pain. GI Denies: Abdominal pain, Vomiting. Musculoskeletal Reports: Neck pain. Skin Reports: Swelling. Neurologic Denies: Focal weakness, Generalized weakness. Past Medical History - Adult Stated Complaint L SIDED NECK SWELLING Allergies Coded Allergies: No Known Allergies (07/17/21) Home Medications Reported Medications No Known Home Medications Discontinued Reported Medications AMOXICILLIN/CLAV K (AUGMENTIN 600 MG/5 ML) Pt reports no significant: Past medical history, Past surgical history Physical Exam Vital Signs Vital Signs First Documented: Result Date Time Pulse Ox 97 [...] 1614 Review of Vital Signs Reviewed Focused PE General/Const General/Const Awake, Alert, No acute distress, Well appearing, Well developed , Well hydrated, Not toxic appearing MS Head Head Atraumatic Eyes Eyes PERRL, EOMI Ears/Nose/Throat Ears/Nose/Throat Atraumatic, Airway patent, Mucous membranes moist, Pharynx NL, No trismus MS Neck Neck Full range of motion Text/Dict Notes Swelling to left neck w/o overlying skin changes Soft Tissue Neck Lymphadenitis L. Resp/Chest Respiratory/Chest Breath sounds NL, Breath sounds = bilat, No respiratory distress Cardiovascular Cardiovascular Heart rate NL, Regular rhythm, Heart sounds NL Skin Skin Color NL Neurologic Neurologic Oriented X3, Speech NL, No motor deficits, Cerebellar NL, Memory NL, Gait NL Images Neck Zones of Neck [Embedded Image Not Available] 1) Swelling and tenderness. No obviously palpable lymph nodes. Interpretation Diagnostics Lab Results Interpretation Results Laboratory Tests: 07/17 1508 Blood Gas Sodium (134 - 147 MEQ/L) 139 Potassium (3.4 - 5.0 MEQ/L) 4.3 Chloride (100 - 108 MEQ/L) 104 Ionized Calcium (1.12 - 1.32 MMOL/L) 1.22 Chemistry POC Creatinine (0.6 - 1.0 mg/dL) 0.8 POC Glucose (mg/dL) (MG/DL) 107 Recent Impressions: CAT SCAN - CT NECK W/CONTRAST 07/17 1525 Report Impression - Status: SIGNED Entered: 07/17/2021 5785 IMPRESSION: 1. Bilateral submental, submandibular, anterior and [...] airway compromise. 3. No organized fluid collection. Impression By: [email or web address] - Rishi Chan M.D. Re-Evaluation MDM Free Text MDM Notes Free Text MDM Notes 21-year-old healthy, vaccinated female presents with left neck swelling and pain. Patient well apearing. DDx: lymphadenitis, hematologic malignancy, mono. Low suspicion for mumps in setting of vaccinated patient. Re-Evaluation/Progress Re-Evaluation/Progress Text/Dict Note CT w/ enlarged lymph nodes c/w lymphadneitis. Will test for mono. Blood work WNL. Discharge with return precautions and instructions to have repeat neck imaging in 6-8 weeks. Patient Discharge Departure Vital Signs/Condition Vital Signs First Documented: Result Date Time Pulse Ox 97 [...] of this entry have been reviewed. Clinical Impression Clinical Impression Primary Impression: Lymphadenopathy of head and neck Disposition Decision Discharge )( Discharged to Home Yes )( Time 1603 )( Date 07/17/21 Discharge/Care Plan Counseled Regarding Diagnosis, Lab results, Imaging studies, Need for follow-up, When to return to ED (Auto) Prescriptions Current Visit Scripts No Known Home Medications Patient Instructions ED Mononucleosis Additional Instructions You will be called will your mono test result. While waiting for result, avoid sharing drinks and avoid contact sports. Referrals PRIMARY CARE: Call for appointment You need to arrange for follow-up ultrasound or CT in 6-8 weeks to assess for resolution of swollen lymph nodes and to exclude underlying lymphoproliferative disorder. Discharge Note I have spoken with the patient and/or caregivers. I have explained the patient's condition, diagnoses and treatment plan based on the information available to me at this time. I have answered the patient's and/or caregiver's questions and addressed any concerns. The patient and/or caregivers have as good an understanding of the patient's diagnosis, condition and treatment plan as can be expected at this point. The vital signs have been stable. The patient's condition is stable and appropriate for discharge from the emergency department. The patient will pursue further outpatient evaluation with the primary care physician or other designated or consulting physician as outlined in the discharge instructions. The patient and/or caregivers are agreeable to this plan of care and follow-up instructions have been explained [...] 07/21/21 0723 by Saulo Kramer MD Patient Addendum Addendum [place] resulted as positive. Called patient and left voicemail, provided results and mono precautions. Recommend PCP follow-up. at 0723 RPT #:[id number] END OF REPORT HCACL
--- NOTE | 2024-08-26 10:30 | EDPHYS ---
Physician Documentation [facility] Name: Natacha Das Age: 24 yrs Sex: Female : 2000 Arrival Date: 08/26/2024 Time: 10:19 Bed 16 Private MD: ED Physician Nikhil Samuel HPI: 08/26 10:25 This 24 yrs old Female presents to ER via Unassigned with complaints of Allergic kb Reaction. 10:25 Pt is a 24 year old female who presents for allergic reaction. States swelling to her kb upper lip started this morning. Reports this happens about once a month and she hasn't been able to find the cause. States it starts as a small area of swelling, then will spread to the rest of her lips. STates benadryl never works so she ends up having to come here for a shot. Denies shortness of breath. 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 - Infectious Disease History:: Denies. - Social history:: Smoking status: Patient denies any tobacco usage or history of. ROS: 10:25 Constitutional: As per HPI kb Exam: 10:25 Constitutional: This is a well developed, well nourished patient who is awake, alert, kb and in no acute distress. Head/Face: Normocephalic, atraumatic. ENT: Moist Mucous membranes Cardiovascular: Regular rate Respiratory: Respirations even and unlabored. No increased work of breathing. Talking in full sentences Skin: Warm, dry with normal turgor. Normal color. MS/ Extremity: Pulses equal, no cyanosis. Neurovascular intact. Full, normal range of motion. Neuro: Awake and alert, GCS 15, oriented to person, place, time, and situation. 10:25 ENT: Mouth: Lips: upper lip, swelling, Vital Signs: 10:30 BP 118 / 74; Pulse 84; Resp 16; Temp 97; Pulse Ox 99% ; ko1 10:48 BP 122 / 72; Pulse 80; Resp 15; Pulse Ox 100% ; ko1 MDM: 10:23 Medical Screening Exam initiated kb 10:28 Differential diagnosis: anaphylaxis, angioedema, urticaria. Data reviewed: vital signs, kb nurses notes. I considered the following discharge prescriptions or medication management in the emergency department discussed oral steroids, pt states the shot works and she doesn't take the pills even when they are prescribed. Counseling: I had a detailed discussion with the patient and/or guardian regarding the historical points, exam findings, and any diagnostic results supporting the discharge/admit diagnosis, the need for outpatient follow up, a family practitioner, to return to the emergency department if symptoms worsen or persist or if there are any questions or concerns that arise at home. Administered Medications: 10:37 Drug: Dexamethasone IM 10 mg IM once Route: IM; Site: left deltoid; ko1 10:49 Follow up: Response: No adverse reaction ko1 10:49 Follow up: Response: Medication administered at discharge. ko1 Disposition Summary: 08/26/24 10:30 Discharge Ordered Notes: Location: Home kb Condition: Stable kb Diagnosis - Localized swelling, mass and lump, unspecified - upper lip kb Followup: kb - With: Emergency Department - When: As needed - Reason: Worsening of condition Followup: kb - With: Private Physician - When: 2 - 3 days - Reason: Recheck today's complaints, Continuance of care, Re-evaluation by your physician Discharge Instructions: - Discharge Summary Sheet kb - Allergies, Adult, Woty-oe-Kvct kb Forms: - Medication Reconciliation Form kb - Antibiotic Education kb - Prescription Opioid Use kb - Patient Portal Instructions kb - Leadership Thank You Letter kb Signatures: Juliette Grove FNP-C FNP-Ckb Oliver, Kathy, RN RN ko1
[2024-08-26] MEDS ORDERED: dexAMETHasone 10 MG/ML VIAL ONE (10:34)
--- NOTE | 2024-08-26 10:50 | ER ---
Nurse's Notes [facility] Name: Natacha Das Age: 24 yrs Sex: Female : 2000 Arrival Date: 08/26/2024 Time: 10:19 Bed 16 Private MD: Diagnosis: Localized swelling, mass and lump, unspecified-upper lip Presentation: 08/26 10:30 Chief complaint: Patient states: reoccurring swelling to upper lip, Benadryl has not ko1 helped. Coronavirus screen: At this time, the client does not indicate any symptoms associated with coronavirus-19. Ebola Screen: No symptoms or risks identified at this time. Onset: The symptoms/episode began/occurred this morning. Anaphylaxis evaluation, no signs or symptoms of anaphylaxis were noted. Initial Sepsis Screen: Does the patient meet any 2 criteria? No. Patient's initial sepsis screen is negative. Does the patient have a suspected source of infection? No. Patient's initial sepsis screen is negative. Risk Assessment: Do you want to hurt yourself or someone else? Patient reports no desire to harm self or others. Onset of symptoms was August 26, 2024. 10:30 Method Of Arrival: Ambulatory ko1 10:30 Acuity: RENITA 4 ko1 Triage Assessment: 10:41 General: Appears in no apparent distress. Behavior is calm, cooperative, appropriate ko1 for age. Pain: Denies pain. 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 - Infectious Disease History:: Denies. - Social history:: Smoking status: Patient denies any tobacco usage or history of. Screenin:41 [place] ED Fall Risk Assessment (Adult) History of falling in the last 3 months, ko1 including since admission No falls in past 3 months (0 pts) Confusion or Disorientation No (0 pts) Intoxicated or Sedated No (0 pts) Impaired Gait No (0 pts) Mobility Assist Device Used No (0 pt) Altered Elimination No (0 pt) Score/Fall Risk Level 0 - 2 = Low Risk Oriented to surroundings, Maintained a safe environment, Educated pt \T\ family on fall prevention, incl call for assistance when getting out of bed, Assessed \T\ reinforced patient's understanding of fall precautions. Abuse screen: Denies threats or abuse. Denies injuries from another. Nutritional screening: No deficits noted. Tuberculosis screening: No symptoms or risk factors identified. Assessment: 10:41 Neuro: No deficits noted. Cardiovascular: No deficits noted. Respiratory: Airway is ko1 patent Respiratory effort is even, unlabored, Breath sounds are clear bilaterally. GI: No deficits noted. : No deficits noted. EENT: No deficits noted. Derm: Reports swelling to lips. Musculoskeletal: No deficits noted. Vital Signs: 10:30 BP 118 / 74; Pulse 84; Resp 16; Temp 97; Pulse Ox 99% ; ko1 10:48 BP 122 / 72; Pulse 80; Resp 15; Pulse Ox 100% ; ko1 ED Course: 10:22 Patient arrived in ED. ra3 10:23 Juliette Grove FNP-C [facility]. kb 10:23 Nikhil Samuel MD is Attending Physician. kb 10:27 Sissy Capps, PRISCILLA is Primary Nurse. ko1 10:41 Triage completed. ko1 10:41 Arm band placed on right wrist. Patient placed in an exam room, on a stretcher, on ko1 pulse oximetry, Patient notified of wait time. 10:41 Patient has correct armband on for positive identification. Bed in low position. Call ko1 light in reach. Side rails up X 1. Provided Education on: meds. Pulse ox on. NIBP on. Door closed. Noise minimized. Lights dimmed. 10:41 No provider procedures requiring assistance completed. Patient did not have IV access ko1 during this emergency room visit. Administered Medications: 10:37 Drug: Dexamethasone IM 10 mg IM once Route: IM; Site: left deltoid; ko1 10:49 Follow up: Response: No adverse reaction ko1 10:49 Follow up: Response: Medication administered at discharge. ko1 Medication: 10:41 VIS not applicable for this client. ko1 Outcome: 10:30 Discharge ordered by . kb 10:48 Discharged to home ambulatory, ko1 10:48 Condition: stable 10:48 Discharge instructions given to patient, Instructed on discharge instructions, follow up and referral plans. Demonstrated understanding of instructions, follow-up care, 10:49 Patient left the ED. ko1 Signatures: Juliette Grove, [employer]-Sissy Lzu RN RN ko1 Maggie Gonzales
[2024-08-26 21:01] VITALS: TEMP 97
[2024-08-26 21:02] VITALS: BP 122/72; O2SAT 100
== END 2024-08-26 10:49 | disposition home or self-care (01) ==
LOC: ER 10:19
DX: R22.9 Localized swelling, mass and lump, unspecified (principal)
CPT/HCPCS: 96372; 99284; J1100

== ENCOUNTER 2025-01-05 08:07 | Emergency (ER) | payer OTHER ==
--- OUTSIDE RECORDS SUMMARY | 2025-01-05 08:10 | XMS REPORT | Continuity of Care Document ---
Author Name Unknown Address [address] [place] [address] [facility] Address [address] [place] [address] Care Team Providers Care Regional Director Of Admissions Name Role Phone LUZ TORRES Attending Clinician Unava ZAHRA Sanders Attending Clinician Unavailable MALCOLM SCHAEFER Attending Clinician Unavailable JAIRO MESSER Attending Clinician Unavailable MD ALETA Attending Clinician Unavailab le LAB90 Attending Clinician Unavailable LIZ KELLY Attending Clinician Unavailable HOPE ORTEGA Attending Clinician Unavailable IAN JACKSON Attending Clinician UnaCECILIO Pugh Attending Clinician Unavailable JYOTHI GALVAN Attending Clinician Unava ilBRITNEY Taylor Attending Clinician Unavailable MICHAEL AQUINO Attending Clinician Unavailab Saulo Cartagena Attending Clinician Marguerite Roberto Trinidad Admitting Clinician Unavailable Payers Payer Name Policy Type Policy Number Effective Date Expirati on Date Source [employer] 5 O [employer]PECTOR 94 [place] 9 [id number] 2024 00:00:00 Allergies, Adverse Reactions, Alerts Allergy Name Allergy Type Status Severity Reaction(s) Onset Date Inactive Date Treating Clinician Comments Source No Known Allergie s DA Active U 07-17 00:00: 00 [facility] No Known Allergie s DA Active U 07-17 00:00: 00 [facility] No Known Intolera nces DA Active U 2012-11 00:00: 00 [facility] No Known Intolera nces DA Active U 2012-11 00:00: 00 [facility] Social History Social Habit Start Date Stop Date Quantity Comments Source Sexual orientation Jeremias Gunn - External ASSERTION Not Tori Gunn - External Alcoholic beverage intake 2024-12-20 00:00:00 2024-12-20 00:00:00 .14 /d Tori Gunn - External History of Social function 2024-12-20 00:00:00 2024-12-20 00:00:00 Tori Gunn - External Alcohol Comment [...] Dosage Frequency Signature (SIG) Comments Components Source Pseudoeph-B romphen-DM 30-2-10 MG/5ML oral Syrup 12-20 00:00: 00 Yes [id number] 10mL Q.25D Take 10 mL by mouth 4 times daily as needed. Tori Oneil Externa l FLUTICASONE PROPIONATE, NASAL, 50 MCG/ACT nasal Suspension 12-20 00:00: 00 Yes [id number] 50ug Q.5D Use 1 spray (50 mcg total) in each nostril 2 times daily. Tori leon Tretinoin 0.025 % apply externally Cream 2023-11 14:07: 31 Yes QD Apply topically nightly. Tori leon Tretinoin 0.05 % apply externally Cream 2023-11 00:00: 00 Yes [id number] Apply a pea-sized amount to face, starting every other night and increasing to nightly as tolerated. . Tori leon Spironolact one 100 MG oral Tablet 2023-11 00:00: 00 Yes [id number] 100mg Take 1 tablet (100 mg total) by mouth at bedtime With full glass of water.. Tori leon Sulfacetami de Sodium, Acne, 10 % apply externally Lotion 2023-11 00:00: 00 Yes [id number] Apply to affected areas once daily.. Tori leon Benzonatate 200 MG oral Capsule 2023-11 00:00: 00 Yes [id number] 200mg Q.[id number] 3D Take 1 capsule (200 mg total) by mouth 3 times daily as needed for cough. Tori leon Amoxicillin 875 MG oral Tablet 2023-11 00:00: 00 10-17 05:59 :00 Yes [id number] 875mg Q.5D Take 1 tablet (875 mg total) by mouth 2 times daily for 7 days. Tori leon Nitrofurant oin Monohyd Macro (Macrobid) 100 MG oral Capsule 2023-11 00:00: 00 10-09 00:00 :00 No [id number] 100mg Q.5D Take 1 capsule (100 mg total) by mouth 2 times daily. Tori leon Minocycline HCl 100 MG oral Capsule 07-28 00:00: 00 Yes [id number] Take 1 pill PO BID for two months. Tori leon Tretinoin 0.025 % apply externally Cream 07-28 00:00: 00 10-09 00:00 :00 No [id number] Apply pea sized amount to face three nights weekly. Increase as tolerated to nightly use.. Tori leon Sulfacetami de Sodium, Acne, 10 % apply externally Lotion 9- 00:00: 00 10-09 00:00 :00 No [id number] Apply to affected areas once daily in AM.. Tori leon Fluconazole 150 MG oral Tablet 06-20 00:00: 00 10-09 00:00 :00 No [id number] Take 1 pill PO once weekly. Tori leon CLINDAMYCIN PHOSPHATE,T OPICAL, 1 % apply externally Lotion 06-20 00:00: 00 07-27 00:00 :00 No [id number] Apply to affected areas twice daily for 4 weeks.. Tori leon Hydrocortis one 2.5 % apply externally Ointment 06-13 00:00: 00 10-09 00:00 :00 No [id number] Apply to affected areas twice daily for up to two weeks. Then use as needed.. Tori leon Doxycycline Hyclate 100 MG oral Tablet 06-13 00:00: 00 10-09 00:00 :00 No [id number] 100mg Q.5D Take 1 tablet (100 mg total) by mouth 2 times daily. Tori leon Ondansetron (ZOFRAN) 4 MG oral TABLET DISPERSIBLE 06-13 00:00: 00 10-09 00:00 :00 No [id number] 4mg Q.29553259 [id number] 3D Take 1 tablet (4 mg total) by mouth every 8 hours as needed for nausea. Tori leon Azelaic Acid 15 % apply externally Gel 06-07 00:00: 00 10-09 00:00 :00 No [id number] Apply once daily for one week, then increase to twice daily.. Tori leon Doxycycline Hyclate 100 MG oral Tablet - 00:00: 00 06-07 00:00 :00 No [id number] 100mg Q.5D Take 1 tablet (100 mg total) by mouth 2 times daily. Tori Seybold - Externa l Vital Signs Vital Name Observation Time Observation Value Comments S ource Body height 2024-10-09 19:31:00 160 cm Kay ey Seybold - External Body weight 2024-10-09 19:31:00 63.504 kg Kay ey Seybold - External BMI 2024-10-09 19:31:00 24.80 kg/m2 Kay ey Seybold - External Systolic blood pressure 2024-07-27 16:37:00 110 mm[Hg] Tori Seybo ld - External Diastolic blood pressure 2024-07-27 [...] Pulse oximetry 2024-07-27 16:37:00 97 /min Tori Seybo ld - External Systolic blood pressure 2024-06-08 18:14:00 116 mm[Hg] Tori Seybo ld - External Diastolic blood pressure 2024-06-08 18:14:00 78 mm[Hg] Tori Seybo ld - External Heart rate 2024-06-08 18:14:00 90 /min Kelse y Seybold - External Body temperature 2024-06-08 18:14:00 36.11 Jazmine Tori Seybold - External Respiratory rate 2024-06-08 18:14:00 15 /min Tori Seybold - External Body height 2024-06-08 18:14:00 [...] External Heart rate 2024-03-23 17:47:00 86 /min Bhargavse y Seybold - External Body temperature 2024-03-23 17:47:00 36.61 Jazmine Tori Seybold - External Respiratory rate 2024-03-23 17:47:00 15 /min Tori Seybold - External Body height 2024-03-23 17:47:00 160 cm Kay ey Seybold - External Body weight 2024-03-23 17:47:00 61.689 kg Kay ey Seybold - External BMI 2024-03-23 17:47:00 24.09 kg/m2 Kay ey Seybold - External Encounters Start Date/Time End Date/Time Encounter Type Admission Type Attending [facility] Care Department Encounter ID Source 2025-01-26 10:00:00 2025-01-26 10:00:00 [id number]25-[facility]-22 11:00:00 2025-01-22 11:00:00 Outpatient ZAHRA GALDAMEZ [id number] [facility] 2025-01-05 10:00:00 2025-01-05 10:00:00 Outpatient MALCOLM SCHAEFER [id number] [facility] 2024-12-20 19:00:00 2024-12-20 19:00:00 Outpatient [facility]IRO MESSER [id number] [facility] 2024-12-12 00:00:00 2024-12-12 00:00:00 Outpatient MD [facility]OR[facility] KIMBALL [id number] [facility] 2024-12-11 12:10:00 2024-12-11 12:10:00 Outpatient LAB90 TORI PALAFOX [id number] Tori Seybarnel 2024-12-11 00:00:00 2024-12-11 00:00:00 Outpatient LIZ KELLY TORI PALAFOX [id number] Tori Seybold 2024-12-09 00:00:00 2024-12-09 00:00:00 Outpatient HOPE ORTEGA [id number] Tori Seybold 2024-12-08 14:40:00 2024-12-08 14:40:00 Outpatient LAB90 TORI PALAFOX [id number] Tori Seybarnel 2024-12-08 13:30:00 2024-12-08 13:30:00 Outpatient LETICIA LIZ TORI PALAFOX [id number] Tori Seybold 2024-12-08 00:00:00 2024-12-08 00:00:00 Outpatient HOPE ORTEGA [id number] Tori Seybold 2024-11-30 00:00:00 2024-11-30 00:00:00 Outpatient HOPE ORTEGA [id number] Tori Seybold 2024-11-03 13:15:00 2024-11-03 13:15:00 Outpatient TORI PALAFOX [id number] Tori Seybold 2024-10-27 14:00:00 2024-10-27 14:00:00 Outpatient LUZ TORRES [id number] Tori Seybold 2024-10-09 13:30:00 2024-10-09 13:30:00 Outpatient IAN JACKSON [id number] Tori Seybold 2024-09-24 00:00:00 2024-09-24 00:00:00 Outpatient LUZ TORRES [id number] Tori Seybold 2024-09-22 11:30:00 2024-09-22 11:30:00 Outpatient HOPE ORTEGA [id number] Tori Seybold 2024-09-04 12:50:00 2024-09-04 12:50:00 Outpatient LAB90 TORI PALAFOX [id number] Toir Seybold 2024-08-29 00:00:00 2024-08-29 00:00:00 Outpatient CECILIO WALKER TORI PALAFOX [id number] Tori [facility] 2024-08-23 19:15:00 2024-08-23 19:15:00 Outpatient JAIRO MESSER TORI PALAFOX [id number] Tori [facility] 2024-08-22 12:20:00 2024-08-22 12:20:00 Outpatient LAB90 TORI PALAFOX [id number] Tori [facility] 2024-08-21 18:45:00 2024-08-21 18:45:00 Outpatient CECILIO WALKER TORI PALAFOX [id number] Tori [facility] 2024-07-28 16:30:00 2024-07-28 16:30:00 Outpatient LUZ TORRES [id number] Tor[facility] 2024-07-27 13:05:00 2024-07-27 13:05:00 Outpatient LAB90 TORI PALAFOX [id number] Tori [facility] 2024-07-27 11:30:00 2024-07-27 11:30:00 Outpatient JYOTHI GALVAN TORI PALAFOX [id number] Tori [facility] 2024-07-26 00:00:00 2024-07-26 00:00:00 Outpatient GARLANDYamilet BRITNEY PALAFOX [id number] Tori [facility] 2024-07-22 10:08:08 2024-07-22 10:08:08 Outpatient SFA SFA [id number] [place] Saucedo 2024-07-20 09:49:07 2024-07-20 09:49:07 Outpatient SFA SFA [id number] [place] Saucedo 2024-06-13 00:00:00 2024-06-13 00:00:00 Outpatient LIZ KELLY [id number] Tor[facility] 2024-06-12 00:00:00 2024-06-12 00:00:00 Outpatient LUZ TORRES [id number] Tor[facility] 2024-06-12 00:00:00 2024-06-12 00:00:00 Outpatient LUZ TORRES TORI [id number] Tori Thomasarnel 2024-06-08 14:15:00 2024-06-08 14:15:00 Outpatient LAB90 TORI TORI [id number] Tori Thomasarnel 2024-06-08 13:30:00 2024-06-08 13:30:00 Outpatient LIZ KELLY TORI PALAFOX [id number] Tori Thomasarnel 2024-06-07 09:45:00 2024-06-07 09:45:00 Outpatient LUZ TORRES TORI [id number] Tori Thomasarnel 2024-04-25 10:30:00 2024-04-25 10:30:00 Outpatient LIZ KELLY TOR[facility] PALAFOX [id number] [facility] 2024-03-28 00:00:00 2024-03-28 00:00:00 Outpatient DANILO KELLYSha PALAFOX [id number] Tori [facility] 2024-03-23 13:45:00 2024-03-23 13:45:00 Outpatient LAB90 TORI TORI [id number] [facility] 2024-03-23 13:00:00 2024-03-23 13:00:00 Outpatient LIZ KELLY TORI PALAFOX [id number] Tori [facility] 2024-03-13 08:15:00 2024-03-13 08:15:00 Outpatient MICHAEL AQUINO TORI PALAFOX [id number] [facility] 2022-10-30 10:41:58 2022-10-30 10:41:58 Outpatient SFA SFA [id number] [place] Saucedo 2021-07-17 14:40:00 2021-07-17 16:15:00 Inpatient EM AinsleySaulo batista [facility]ACL AERS [id number] [facility] Results Test Description Test Time Test Comments Results Result Co mments Source URINE HCG TRIAGE (ER ONLY)2021-07-18 10:02:00* Test Item Value Reference Range Interpretation Comme nts URINE HCG TRIAGE (ER ONLY) ( test code = HCGTRIAGE) NEGATIVE Negative Urine Test Result: NEGATIVEAre internal controls (presence of a control line & clear background) OK? YesLot # of HCG Test Kit: [id number] Date of Kit: 12/01/22Test Performed by: Warren Perfomed on: 07/17/21[facility] W/AUTO [id number] 00:00:00* Test Item Value Reference Range Interpretation [...] = MX#) 0.8 k/mm3 0.1-0.8 N MONO [id number] 19:16:00* Test Item Value Reference Range Interpretation Comme nts MONO SCREEN (test code = MONO) POSITIVE NEGATIVE [place] [address]/17/21Nurse read back resut and tech confirmed it's correct? Y BASIC METABOLIC [id number] 15:13:00* Test Item Value Reference Range Interpretation [...] = POCGLU) 107 MG/DL - CT NECK W/[id number] 00:00:00 [facility] 2000 Sex: F Name: LICHA GALLAGHER FSED : 2000 Age/S: 21 / F [address] [facility] Unit #: [id number] Loc:Geovani Andrews [address] Phys: Saulo Kramer MD Acct: [id number] Dis Date: Status: REG ER PHONE#: Exam Date: 07/17/2021 1532 FAX #: Reason: LEFT LATERAL NECK SWELLING EXAMS: CPT CODE: [id number] NECK W/CONTRAST 08243 PROCEDURE INFORMATION: Exam: CT Neck With Contrast [...] INTRAVENOUS (IV); Other technique: CT RADIATION DOSE DLP:280.26 MGY-CM COMPARISON: No relevant prior studies available. FINDINGS: Brain: No abnormal intracranial enhancement along the visualized segments. Nasopharynx: Mildly prominent tonsillar pillars andnasopharyngeal adenoidal tissue with no airway compromise. Oropharynx: No significant tonsillar enlargement. Hypopharynx: Unremarkable. Larynx: Normal epiglottis. Retropharyngeal space: Unremarkable.Submandibular/Parotid glands: Glands are normal in size. No focal lesions. Thyroid: Unremarkable thyroid gland. Lymph nodes: Bilateral submental, submandibular, anterior posterior triangle lymphadenopathy is noted with the dominant right and left submandibular lymph nodes measuring 15 and 17 mm in maximum transverse dimension, respectively. Subcentimeter bilateral supraclavicular lymph nodes areseen, not enlarged by size criteria and without [...] : 2000 Age/S: 21 / F [address] [facility] Unit #: [id number] Loc: Darryl Geovani [address] Phys: Saulo Kramer MD Acct: [id number] Dis Date: Status: REG ER PHONE #: Exam Date: 07/17/2021 5880 FAX #: Reason: LEFT LATERAL NECK SWELLING EXAMS: CPT CODE: [id number] CT NECK W/CONTRAST 26254 (Continued) Other findings: Visualized skeleton is unremarkable. [...] Rishi Chan M.D. CC: Saulo Kramer MD Technologist:Cynthia Dewey, RT(R)(CT) CTDI: DLP: Trnscb Date/Time: 07/17/2021 (1555)t.SDR.ERR2 Orig Print D/T: S: 07/17/2021 (9380) PAGE 2 Signed Report Notes Date/Time Note Provider Source 2024-10-09 13:32:09 Room by Ritika Jason LVN. 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 No other issues to discuss Gia Martinez MA II [facility] 2024-06-07 09:32:57 Chief Complaint Patient presents with Skin Lesion Jessica Pablo T [facility] 2024-03-23 12:51:57 Chief Complaint Patient presents with Establish Care Previously seen a PCP at [facility] in [place]. Last annual over a year ago. Skin Problem Skin tag on left ear. Gai Martinez MA II T [facility] 2021-07-17 14:55:00 [facility] ([facility] EMERGENCY PROVIDER REPORT REPORT#:[id number] REPORT STATUS: Signed DATE:07/17/21 TIME: 5 PATIENT: LICHA GALLAGHER UNIT #: [id number] ROOM/BED: AGE: 21 SEX: F PCP PHYS: [...] Report Impression - Status: SIGNED Entered: 07/17/2021 8379 IMPRESSION: 1. Bilateral submental, submandibular, anterior and [...] by Saulo Kramer MD Patient Addendum Addendum [place] resulted as positive. Called patient and left voicemail, provided results and mono precautions. Recommend PCP follow-up. at 0723 RPT #:[id number] END OF REPORT [facility]ACL
[2025-01-05] MEDS ORDERED: predniSONE 20 MG TAB ONE (08:31)
[2025-01-05] MEDS ORDERED: FAMOTIDINE 20 MG TAB ONE (08:32)
[2025-01-05] MEDS ORDERED: DIPHENHYDRAMINE 25 MG TAB/CAP ONE (08:32)
[2025-01-05] MEDS ORDERED: METHYLPREDNISOLONE 125 MG INJ ONE (08:45)
--- NOTE | 2025-01-05 08:55 | ER ---
Nurse's Notes [facility] Name: Natacha Das Age: 24 yrs Sex: Female : 2000 Arrival Date: 01/05/2025 Time: 08:07 Bed 12 Private MD: Diagnosis: Allergy, unspecified;Angioneurotic edema-stable Presentation: 01/05 08:14 Chief complaint: Patient states: Upper lip swelling since 4 AM. Gotten worse after ll1 taking medications we prescribed her last time for the same thing. Coronavirus screen: Client denies travel out of the [place] in the last 14 days. At this time, the client does not indicate any symptoms associated with coronavirus-19. Ebola Screen: Patient denies travel to an Ebola-affected area in the 21 days before illness onset. Initial Sepsis Screen: Does the patient meet any 2 criteria? No. Patient's initial sepsis screen is negative. Does the patient have a suspected source of infection? No. Patient's initial sepsis screen is negative. Risk Assessment: Do you want to hurt yourself or someone else? Patient reports no desire to harm self or others. Onset of symptoms was January 05, 2025. 08:14 Method Of Arrival: Ambulatory ll1 08:14 Acuity: RENITA 4 ll1 Triage Assessment: 08:14 General: Appears in no apparent distress. Behavior is calm, cooperative, appropriate ll1 for age. Pain: Denies pain. EENT: upper lip swelling. Derm: Reports swelling upper lip. 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 - Infectious Disease History:: Denies. - Social history:: Smoking status: Patient denies any tobacco usage or history of. - Family history:: not pertinent. Screenin:08 [facility] ED Fall Risk Assessment (Adult) History of falling in the last 3 months, ll1 including since admission No falls in past 3 months (0 pts) Confusion or Disorientation No (0 pts) Intoxicated or Sedated No (0 pts) Impaired Gait No (0 pts) Mobility Assist Device Used No (0 pt) Altered Elimination No (0 pt) Score/Fall Risk Level 0 - 2 = Low Risk Maintained a safe environment, Hourly rounding (assess needs \T\ fall precautionary measures) done. Abuse screen: Denies threats or abuse. Nutritional screening: No deficits noted. Tuberculosis screening: No symptoms or risk factors identified. Assessment: 08:48 Reassessment: No changes from previously documented assessment. Patient and/or family ll1 updated on plan of care and expected duration. Pain level reassessed. 09:08 Reassessment: No changes from previously documented assessment. Patient and/or family ll1 updated on plan of care and expected duration. Pain level reassessed. Patient is alert, oriented x 3, equal unlabored respirations, skin warm/dry/pink. Vital Signs: 08:14 BP 124 / 83; Pulse 106; Resp 16; Temp 97.2; Pulse Ox 99% ; Weight 58.06 kg; Height 5 ll1 ft. 3 in. ; Pain 7/10; 09:08 Pulse 100; Resp 17; Pulse Ox 99% ; Pain 0/10; ll1 08:14 Body Mass Index 22.67 (58.06 kg, 160.02 cm) ll1 08:14 Pain Scale: Adult ll1 09:08 Pain Scale: Adult ll1 ED Course: 08:10 Patient arrived in ED. mr 08:10 Nikhil Samuel MD is Attending Physician. kaylee 08:15 Triage completed. ll1 08:15 Arm band placed on. ll1 08:25 Micaela Manzanares RN is Primary Nurse. ll1 08:53 Samuel Leiva MD is Referral Physician. kaylee 09:08 Patient has correct armband on for positive identification. Provided Education on: ll1 Return to ED for worsening symptoms. 09:08 No provider procedures requiring assistance completed. Patient did not have IV access ll1 during this emergency room visit. Administered Medications: 08:47 Drug: diphenhydrAMINE PO 25 mg PO once Route: PO; ll1 09:12 Follow up: Response: No adverse reaction ll1 08:47 Drug: predniSONE PO 60 mg PO once Route: PO; ll1 09:12 Follow up: Response: No adverse reaction ll1 08:47 Drug: Famotidine PO 40 mg PO once Route: PO; ll1 09:08 Follow up: Response: No adverse reaction ll1 Medication: 09:08 VIS not applicable for this client. ll1 Outcome: 08:54 Discharge ordered by . kaylee 09:08 Patient left the ED. 1 09:08 Discharged to home ambulatory, 1 09:08 Condition: stable 09:08 Discharge instructions given to patient, Instructed on discharge instructions, follow up and referral plans. medication usage, Demonstrated understanding of instructions, follow-up care, medications, Prescriptions given X 3, Signatures: Nikhil Samuel MD MD cha Rivera, Mary, Reg Reg Micaela Manuel, RN RN 1
--- NOTE | 2025-01-05 08:55 | EDPHYS ---
Physician Documentation [facility] Name: Natacha Das Age: 24 yrs Sex: Female : 2000 Arrival Date: 01/05/2025 Time: 08:07 Bed 12 Private MD: ED Physician Nikhil Samuel HPI: 01/05 08:50 This 24 yrs old Female presents to ER via Ambulatory with complaints of Lips kaylee Swelling. 08:50 The patient presents with swelling. The problem is located in the mouth. Onset: The kaylee symptoms/episode began/occurred just prior to arrival, this morning. Duration: The symptoms are intermittent, with no pattern. Modifying factors: The symptoms are alleviated by nothing, the symptoms are aggravated by nothing. Associated signs and symptoms: The patient has no apparent associated signs or symptoms. Severity of symptoms: At their worst the symptoms were mild, moderate, in the emergency department the symptoms are unchanged. The patient has experienced similar episodes in the past, multiple times. 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 - Infectious Disease History:: Denies. - Social history:: Smoking status: Patient denies any tobacco usage or history of. - Family history:: not pertinent. ROS: 08:50 Constitutional: Negative for fever, chills, and weight loss, Eyes: Negative for injury, kaylee pain, redness, and discharge, Neck: Negative for injury, pain, and swelling, Cardiovascular: Negative for chest pain, palpitations, and edema, Respiratory: Negative for shortness of breath, cough, wheezing, and pleuritic chest pain, Abdomen/GI: Negative for abdominal pain, nausea, vomiting, diarrhea, and constipation, Back: Negative for injury and pain, : Negative for injury, bleeding, discharge, and swelling, MS/Extremity: Negative for injury and deformity, Skin: Negative for injury, rash, and discoloration, Neuro: Negative for headache, weakness, numbness, tingling, and seizure, Psych: Negative for depression, anxiety, suicide ideation, homicidal ideation, and hallucinations, Allergy/Immunology: Negative for hives, rash, and allergies, Endocrine: Negative for neck swelling, polydipsia, polyuria, polyphagia, and marked weight changes, Hematologic/Lymphatic: Negative for swollen nodes, abnormal bleeding, and unusual bruising, 08:50 ENT: Positive for of the mouth, Exam: 08:50 Constitutional: This is a well developed, well nourished patient who is awake, alert, kaylee and in no acute distress. Head/Face: Normocephalic, atraumatic. Eyes: Pupils equal round and reactive to light, extra-ocular motions intact. Lids and lashes normal. Conjunctiva and sclera are non-icteric and not injected. Cornea within normal limits. Periorbital areas with no swelling, redness, or edema. Neck: Trachea midline, no thyromegaly or masses palpated, and no cervical lymphadenopathy. Supple, full range of motion without nuchal rigidity, or vertebral point tenderness. No Meningismus. Chest/axilla: Normal chest wall appearance and motion. Nontender with no deformity. No lesions are appreciated. Cardiovascular: Regular rate and rhythm with a normal S1 and S2. No gallops, murmurs, or rubs. Normal PMI, no JVD. No pulse deficits. Respiratory: Lungs have equal breath sounds bilaterally, clear to auscultation and percussion. No rales, rhonchi or wheezes noted. No increased work of breathing, no retractions or nasal flaring. Abdomen/GI: Soft, non-tender, with normal bowel sounds. No distension or tympany. No guarding or rebound. No evidence of tenderness throughout. Back: No spinal tenderness. No costovertebral tenderness. Full range of motion. Skin: Warm, dry with normal turgor. Normal color with no rashes, no lesions, and no evidence of cellulitis. MS/ Extremity: Pulses equal, no cyanosis. Neurovascular intact. Full, normal range of motion., bilateral aka Neuro: Awake and alert, GCS 15, oriented to person, place, time, and situation. Cranial nerves II-XII grossly intact. Motor strength 5/5 in all extremities. Sensory grossly intact. Cerebellar exam normal. Normal gait. Psych: Awake, alert, with orientation to person, place and time. Behavior, mood, and affect are within normal limits. 08:50 ENT: Mouth: Lips: moist, Oral mucosa: normal, Gums: normal with healthy appearance, Tongue: is normal, abscess, that is minimal, Posterior pharynx: is normal, airway is patent, no erythema, no exudate, no peritonsilar mass, no pooling of secretions, no swelling, no acute changes, Airway: normal, no evidence of obstruction, Vital Signs: 08:14 BP 124 / 83; Pulse 106; Resp 16; Temp 97.2; Pulse Ox 99% ; Weight 58.06 kg; Height 5 ll1 ft. 3 in. ; Pain 7/10; 09:08 Pulse 100; Resp 17; Pulse Ox 99% ; Pain 0/10; ll1 08:14 Body Mass Index 22.67 (58.06 kg, 160.02 cm) ll1 08:14 Pain Scale: Adult ll1 09:08 Pain Scale: Adult ll1 MDM: 08:12 Medical Screening Exam initiated kalyee 08:50 Differential diagnosis: dental caries, gingivitis, dental abscess. Data reviewed: vital kaylee signs, nurses notes. Consideration of Admission/Observation Escalation of care including admission/observation considered. I considered the following discharge prescriptions or medication management in the emergency department Medications were administered in the Emergency Department. See MAR. Historians other than the Patient: Spouse/Significant Other: sig other. Care significantly affected by the following chronic conditions: none , hx of lip filler. Administered Medications: 08:47 Drug: diphenhydrAMINE PO 25 mg PO once Route: PO; ll1 09:12 Follow up: Response: No adverse reaction ll1 08:47 Drug: predniSONE PO 60 mg PO once Route: PO; ll1 09:12 Follow up: Response: No adverse reaction ll1 08:47 Drug: Famotidine PO 40 mg PO once Route: PO; ll1 09:08 Follow up: Response: No adverse reaction ll1 Disposition Summary: 01/05/25 08:54 Discharge Ordered Notes: Location: Home kaylee Problem: new kaylee Symptoms: have improved kaylee Condition: Stable kaylee Diagnosis - Allergy, unspecified kaylee - Angioneurotic edema - stable kaylee Followup: kaylee - With: Private Physician - When: 2 - 3 days - Reason: Recheck today's complaints, Continuance of care, Re-evaluation by your physician Followup: kaylee - With: Samuel Leiva MD - When: 2 - 3 days - Reason: Recheck today's complaints, Re-evaluation by your physician Discharge Instructions: - Angioedema kaylee - Angioedema, [id number] kaylee - Allergy Skin Testing kaylee - Discharge Summary Sheet ll1 Forms: - Medication Reconciliation Form kaylee - Antibiotic Education kaylee - Prescription Opioid Use kaylee - Patient Portal Instructions kaylee - Leadership Thank You Letter kaylee - Work release form ll1 Prescriptions: - Benadryl 25 mg Oral Capsule - take 1 capsule ORAL route every 6 hours As needed; 30 tablet; Refills: 0, [facility] Product Selection Permitted - Pepcid 20 mg Oral Tablet - take 1 tablet ORAL route every 12 hours for 10 days; 20 tablet; Refills: 0, [facility] Product Selection Permitted - Prednisone 20 mg Oral Tablet - take 2 tablets ORAL route once daily for 5 days; 10 tablet; Refills: 0, Product kaylee Selection Permitted Signatures: Nikhil Samuel MD MD cha Lewis, Lynsay RN RN ll1
[2025-01-05 09:26] VITALS: BP 124/83; TEMP 97.2; O2SAT 99
== END 2025-01-05 09:08 | disposition home or self-care (01) ==
LOC: ER 08:07
DX: T78.3XXA Angioneurotic edema, initial encounter (principal)
CPT/HCPCS: 99283; J7512; J2919